=== PATIENT | female | born 1960 | race Caucasian/White ===

== ENCOUNTER 2017-12-25 11:31 | Inpatient (IN) ==
[2017-12-25] MEDS ORDERED: Sod Chloride 0.9% Inj 1,000 ML IV.SIG ONE (12:44)
[2017-12-25] MEDS ORDERED: Morphine Inj 4 MG/ML Vial IV.PUSH ONE (12:44)
[2017-12-25 13:47] LABS: Baso % (Auto) 0.3 % (0.0-2.0); Eos # (Auto) 0.1 th/mm3 (0.0-0.4); Eos % (Auto) 0.6 % (0.0-4.0); Hematocrit 39.2 % (35.0-46.0); Hemoglobin 13.3 gm/dL (11.6-15.3); Lymph % (Auto) 11.7 % (9.0-44.0); Mean Corpuscular HGB Conc 33.9 % (32.0-36.0); Mean Corpuscular Volume 91.5 fL (80.0-100.0); Mean Platelet Volume 10.6 fL (7.0-11.0); Mono # (Auto) 1.4 th/mm3 (0.0-0.9); Neut # (Auto) 6.3 th/mm3 (1.8-7.7); Neut % (Auto) 71.4 % (16.0-70.0); Platelet Count 234 th/mm3 (150-450); Red Blood Count 4.29 mil/mm3 (4.00-5.30); Red Cell Distribution Width 13.2 % (11.6-17.2); White Blood Count 8.8 th/mm3 (4.0-11.0)
[2017-12-25 13:57] LABS: Activated Partial Thrombo Time 28.6 sec (24.3-30.1); INR 1.2 Ratio; Prothrombin Time 11.8 sec (9.8-11.6)
[2017-12-25 14:30] LABS: Alanine Aminotransferase 25 U/L (10-53); Albumin 2.4 g/dL (3.4-5.0); Alkaline Phosphatase 52 U/L (45-117); Anion Gap 8 meq/L (5-15); Aspartate Aminotransferase 21 U/L (15-37); Blood Urea Nitrogen 10 mg/dL (7-18); Calcium 8.2 mg/dL (8.5-10.1); Carbon Dioxide 27.6 meq/L (21.0-32.0); Chloride 99 meq/L (98-107); Glomerular Filtration Rate 77 mL/min (>89); Glucose,Random 118 mg/dL (74-106); Lipase 52 U/L (73-393); Potassium 3.4 meq/L (3.5-5.1); Sodium 135 meq/L (136-145); Total Protein 6.3 g/dL (6.4-8.2)
--- NOTE | 2017-12-25 17:35 | CT ---
EXAM DATE: 12/25/2017 5:27 PM EDT AGE/SEX: 57 years / Female INDICATIONS: Nausea and diarrhea today. CLINICAL DATA: This is the patient's initial encounter. Patient reports that signs and symptoms have been present for 1 day and indicates a pain score of 0/10. MEDICAL/SURGICAL HISTORY: . chron' s None. ORAL CONTRAST: No oral contrast ingested. RADIATION DOSE: 4.86 CTDI (mGy) COMPARISON: No prior exams available for comparison. TECHNIQUE: Multiple contiguous axial images were obtained through the abdomen and pelvis following b olus infusion of 89 ml Omnipaque 350 (iohexol) nonionic water-soluble contrast as a single exam dos e. No oral contrast ingested. Using automated exposure control and adjustment of the mA and/or kV ac cording to patient size, radiation dose was kept as low as reasonably achievable to obtain optimal di agnostic quality images. DICOM format image data is available electronically for review and comparis on. FINDINGS: Abdomen CT: The liver, spleen, pancreas, kidneys, adrenals are unremarkable. There is no evidence for any appreci able pathological adenopathy, free fluid, or bowel obstruction. Gallbladder is slightly distended me asures 8 cm in size and common bile duct measures 6 [address] CT: There is no evidence for mass, abscess formation, or any significant adenopathy within the pelvis. T here is slight fluid within the cul-de-sac. There is distention of the patient's colon fairly diffuse ly with extensive stool in the cecum. The transverse colon measures almost 5 cm in size and there is thickening of the descending colon colonic wall with fluid within the descending colon as well. Possi bility of colitis should be entertained the appearance is nonspecific. There is no evidence for small bowel obstruction. CONCLUSION: Distended colon with thickening of the colonic wall involving descending colon and possib ility of colitis should be entertained. The patient has a history of Crohn's disease and possibility of inflammatory bowel disease should also be entertained. The small bowel appears grossly intact for technique. Electronically signed by: Lisa Lacy MD 12/25/2017 5:33 PM EDT
[2017-12-25] MEDS ORDERED: Ciprofloxacin 400 MG/200 ML 400 MG/200 ML PIGGYBACK IV.SIG ONE (18:17)
[2017-12-25] MEDS ORDERED: Acetaminophen 325 MG Tablet PO PRN (18:23)
[2017-12-25] MEDS ORDERED: Naloxone Inj 0.4 MG/ML Vial IV.PUSH PRN (18:27)
[2017-12-25] MEDS ORDERED: oxyCODONE/Acetaminophen 10/325 Tablet PO PRN (18:27)
[2017-12-25] MEDS ORDERED: Morphine Inj 4 MG/ML Vial IV.PUSH PRN (18:27)
[2017-12-25] MEDS ORDERED: Enoxaparin Inj 30 MG/0.3 ML Syringe SQ SCH (18:30)
[2017-12-25] MEDS: Sod Chloride 0.9% Inj 1,000 ML IV.SIG SCH (18:34)
--- NOTE | 2017-12-25 18:38 | ED ---
HPI General Chief complaint: Nausea/Vomiting/Diarrhea Stated complaint: Diarrhea,fever,pain all over Time Seen by Provider: 12/25/17 12:36 Source: patient Mode of arrival: ambulatory Limitations: no limitations History of Present Illness HPI Narrative: 57-year-old female from [place] who presents to the ED for evaluation of abdominal pain, nausea vomiting diarrhea. Per patient she is had symptoms since Wednesday. Per patient is a chronic history of Crohn's disease. Patient herself does not speak Anguillan but her speaks Anguillan and prefers to be the one who translates for the patient. Translating services were offered to the and but they declined stating that the wants to translate for her. Per report I was given from the apparently patient has been having the pain from Wednesday. Continues. Comes and goes with cramping. Is having liquidy diarrhea and some episodes of blood. No chest pain or shortness of breath. Has vomited about twice. Has been taking over-the -counter Imodium with minimal relief. Symptoms have not improved which is per prompted evaluation. No other medical issues at this time. Per patient the pain is 7 out of 10. Denies any back pain. No urinary symptoms. No fevers chills or sweats. Per no new food has been tried but patient is from [place] and is currently visiting in the [facility]. Related Data Home Medications Medication Instructions Recorded Confirmed No Known Home Medications 12/25/17 12/25/17 Allergies Allergy/AdvReac Type Severity Reaction Status Date / Time No Known Allergies Allergy Verified 12/25/17 12:01 Review of Systems ROS: all other systems reviewed are negative ON LICENSE OF [facility] Medical History Medical History Crohns disease (Acute) Surgical History Surgical History No history of previous surgery (Acute) Social History Social History Second Hand Smoke Exposure: No Smoking Status: Never smoker How Often Do You Have a Drink Containing Alcohol: Monthly or less Recent Travel in [facility] within the Last 8 Weeks: Yes Recent Out of Country Travel within the Last 8 Weeks: Yes Immunization History Tetanus Immunization: Unsure Hx Influenza Vaccine This Season: Unable to Assess Exam Narrative Exam Narrative: GENERAL: Well appearing SKIN: Focused skin assessment warm/dry. HEAD: Atraumatic. Normocephalic. EYES: Pupils equal and round. No scleral icterus. No injection or drainage. ENT: No nasal bleeding or discharge. Mucous membranes pink and moist. NECK: Trachea midline. No JVD. CARDIOVASCULAR: Regular rate and rhythm. No murmur appreciated. RESPIRATORY: No accessory muscle use. Clear to auscultation. Breath sounds equal bilaterally. GASTROINTESTINAL: Abdomen soft, very tender to touch especially in the lower abdomen, nondistended. Hepatic and splenic margins not palpable. MUSCULOSKELETAL: No obvious deformities. No clubbing. No cyanosis. No edema. Full range of motion of the upper and lower extremities bilaterally. 2+ pulses bilaterally. NEUROLOGICAL: Awake and alert. No obvious cranial nerve deficits. Motor grossly within normal limits. Normal speech. PSYCHIATRIC: Appropriate mood and affect; insight and judgment normal. Course Initial Documented Vital Signs Temperature 99.1 F 12/25/17 11:49 Pulse Rate 98 H 12/25/17 11:49 Respiratory Rate 16 12/25/17 11:49 Blood Pressure 110/55 L 12/25/17 11:49 Pulse Oximetry 97 12/25/17 11:49 Last Documented Vital Signs Temperature 99.1 F 12/25/17 11:49 Pulse Rate 100 H 12/25/17 16:01 Respiratory Rate 19 12/25/17 16:01 Blood Pressure 110/60 12/25/17 16:01 Pulse Oximetry 95 12/25/17 16:01 Medical Decision Making MDM Narrative Medical decision making narrative: 57-year-old female that presents to the ED for evaluation of abdominal pain. Patient was properly examined and was found to have signs and symptoms consistent appears to be likely Crohn's flare versus colitis versus diverticulitis. Labs and imaging order. and patient agreed to proceed. Labs and imaging were positive for what appears to be colitis of infectious versus inflammatory disease. Because of patient's recent travel I am concerned for colitis of infectious etiology as well as possible flare secondary to her Crohn's. Patient still in some discomfort although those seem to have improved. Case was discussed with GI specialist Dr Regalado who recommends inflammatory markers and admission the patient still having some discomfort. This was discussed with the patient and the who agree with admission. Patient was started on Flagyl and Cipro. Case discussed with my attending Dr. Santos who agrees with this. Case discussed with Dr. Coles who agrees to admission to his service. Medical Screen Exam Complete: Yes Emergency Medical Condition: Yes Differential Diagnosis Differential Diagnosis: Crohn's disease versus Crohn's flare versus colitis versus diverticulitis versus sepsis versus the hydration Medical Records Medical records reviewed: Yes I reviewed the patient's medical records. Lab Data Lab results reviewed: Yes I reviewed the patient's lab results. Result diagrams: 12/25/17 12:30 12/25/17 12:30 Lab Results 12/25/17 12/25/17 12/25/17 Range/Units 12:30 12:30 12:30 WBC 8.8 (4.0-11.0) th/mm3 RBC 4.29 (4.00-5.30) mil/mm3 Hgb 13.3 (11.6-15.3) gm/dL Hct 39.2 (35.0-46.0) % MCV 91.5 (80.0-100.0) fL MCH 31.0 (27.0-34.0) pg MCHC 33.9 (32.0-36.0) % RDW 13.2 (11.6-17.2) % Plt Count 234 (150-450) th/mm3 MPV 10.6 (7.0-11.0) fL Neut % (Auto) 71.4 H (16.0-70.0) % Lymph % (Auto) 11.7 (9.0-44.0) % Loup % (Auto) 16.0 H (0.0-8.0) % Eos % (Auto) 0.6 (0.0-4.0) % Baso % (Auto) 0.3 (0.0-2.0) % Neut # (Auto) 6.3 (1.8-7.7) th/mm3 Lymph # (Auto) 1.0 (1.0-4.8) th/mm3 Loup # (Auto) 1.4 H (0.0-0.9) th/mm3 Eos # (Auto) 0.1 (0.0-0.4) th/mm3 Baso # (Auto) 0.0 (0.0-0.2) th/mm3 WBC Differential . Differential Comment Auto diff final PT (9.8-11.6) sec INR Ratio APTT (24.3-30.1) sec Sodium 135 L Cancelled (136-145) meq/L Potassium 3.4 L Cancelled (3.5-5.1) meq/L Chloride 99 Cancelled (98-107) meq/L Carbon Dioxide 27.6 Cancelled (21.0-32.0) meq/L Anion Gap 8 Cancelled (5-15) meq/L BUN 10 Cancelled (7-18) mg/dL Creatinine 0.77 Cancelled (0.50-1.00) mg/dL Estimated GFR 77 L Cancelled (>89) mL/min Random Glucose 118 H Cancelled (74-106) mg/dL Lactic Acid (0.4-2.0) mmol/L Calcium 8.2 L Cancelled (8.5-10.1) mg/dL Prot Corrected Calcium Cancelled Total Bilirubin 0.4 Cancelled (0.2-1.0) mg/dL AST 21 Cancelled (15-37) U/L ALT 25 Cancelled (10-53) U/L Alkaline Phosphatase 52 Cancelled (45-117) U/L Total Protein 6.3 L Cancelled (6.4-8.2) g/dL Albumin 2.4 L Cancelled (3.4-5.0) g/dL Lipase 52 L Cancelled (73-393) U/L 12/25/17 12/25/17 Range/Units 12:56 13:00 WBC (4.0-11.0) th/mm3 RBC (4.00-5.30) mil/mm3 Hgb (11.6-15.3) gm/dL Hct (35.0-46.0) % MCV (80.0-100.0) fL MCH (27.0-34.0) pg MCHC (32.0-36.0) % RDW (11.6-17.2) % Plt Count (150-450) th/mm3 MPV (7.0-11.0) fL Neut % (Auto) (16.0-70.0) % Lymph % (Auto) (9.0-44.0) % Loup % (Auto) (0.0-8.0) % Eos % (Auto) (0.0-4.0) % Baso % (Auto) (0.0-2.0) % Neut # (Auto) (1.8-7.7) th/mm3 Lymph # (Auto) (1.0-4.8) th/mm3 Loup # (Auto) (0.0-0.9) th/mm3 Eos # (Auto) (0.0-0.4) th/mm3 Baso # (Auto) (0.0-0.2) th/mm3 WBC Differential Differential Comment PT 11.8 H (9.8-11.6) sec INR 1.2 Ratio APTT 28.6 (24.3-30.1) sec Sodium (136-145) meq/L Potassium (3.5-5.1) meq/L Chloride (98-107) meq/L Carbon Dioxide (21.0-32.0) meq/L Anion Gap (5-15) meq/L BUN (7-18) mg/dL Creatinine (0.50-1.00) mg/dL Estimated GFR (>89) mL/min Random Glucose (74-106) mg/dL Lactic Acid 1.3 (0.4-2.0) mmol/L Calcium (8.5-10.1) mg/dL Prot Corrected Calcium Total Bilirubin (0.2-1.0) mg/dL AST (15-37) U/L ALT (10-53) U/L Alkaline Phosphatase (45-117) U/L Total Protein (6.4-8.2) g/dL Albumin (3.4-5.0) g/dL Lipase (73-393) U/L Imaging Data Attestation: I personally reviewed and interpreted this imaging study as follows : Radiologist's impression: Abdomen/Pelvis CT 12/25/17 15:31 CONCLUSION: Distended colon with thickening of the colonic wall involving descending colon and possibility of colitis should be entertained. The patient has a history of Crohn's disease and possibility of inflammatory bowel disease should also be entertained. The small bowel appears grossly intact for technique. Discharge Plan Discharge Disposition Patient Disposition: 30 Still Patient Discharge Details Diagnosis: Colitis, Acute Crohn's disease Physicians Team ED Provider: Jun Santos ED Midlevel Provider: Vickey Sadler Primary Care Provider: Primary Care MukuliLuli Rxs /Orders / Referrals /Forms Prescriptions: No Action No Known Home Medications RF: 0 Discharge Interventions Interventions: Vital Signs Last Done: 12/25/17 16:01 Status ED Status: With Doctor
--- NOTE | 2017-12-25 19:04 | P.HPIM ---
History of Present Illness Primary Care Physician: No Primary Care Physician History of Present Illness: This is a 57-year-old female with a PMH of Crohn's Disease who presented to ER with complaints of abdominal pain, nausea, vomiting and diarrhea x4 days. 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 Pain is intermittent, cramping, 8/10, non-radiating, associated w/ nausea/vomiting and diarrhea. Denies fever or chills. On arrival, BP 110/55, HR 98, O2 sat 97% on RA, Temp 99.1. CBC unremarkable. INR 1.2. Chemistry essentially unremarkable except for GFR 77. K+ 3.4. Lactic Acid 1.3. CT Abdomen/Pelvis with distended colon and thickening of colonic wall involving descending colon and likely due to colitis. S/p Cipro/Flagyl - Diagnosis (1) Colitis (2) Crohn's disease (3) Intractable nausea and vomiting Inpatient Certification: I certify that the inpatient services were ordered in accordance with Medicare regulations governing the order. This includes certification that hospital inpatient services are reasonable and necessary and in the case of services not specified as inpatient-only under 42 CFR 419.22(n), that they are appropriately provided as inpatient services in accordance to with the 2-midnight benchmark under 43 CFR 412.3(e) Estimated Total Length of Stay (Days): 3 Plans for Post Hospital Care: Home Review of Systems PAST FAMILY HISTORY: Reviewed. No h/o DM or CAD All other systems reviewed negative except as stated in HPI [facility] - History History Provided By: Patient - Medical History Medical History: Medical History (Last Reviewed 12/25/17 @ 18:34 by JHOAN Vargas) Crohns disease - Surgical History Surgical History: Surgical History (Last Reviewed 12/25/17 @ 18:34 by JHOAN Vargas) No history of previous surgery - Tobacco History Second Hand Smoke Exposure: No Tobacco Use In Past 30 Days: No Smoking Status: Never smoker - Alcohol History How Often Do You Have a Drink Containing Alcohol: Monthly or less - Travel History Recent Travel in the [place] Within the Last 8 Weeks: Yes Recent Travel Out of the Country Within the Last 8 Weeks: Yes - Immunization History Tetanus Immunization: Unsure Hx Influenza Vaccine This Season: Unable to Assess Medications and Allergies Active Medications: Active Medications Acetaminophen (Tylenol) 650 mg PO Q4H PRN PRN Reason: Temp > 100.4 Hydrocodone Bitart/Acetaminophen ([place] 5/325) 1 tab PO Q4H PRN PRN Reason: PAIN SCALE 3 TO 5 Enoxaparin Sodium (Lovenox Inj) 30 mg SQ Q24H LISSETTE Metronidazole/Sodium Chloride (Flagyl 500 Mg Inj) 100 mls @ 100 mls/hr IV.SIG ONCE ONE Stop: 12/25/17 19:15 Last Admin: 12/25/17 18:33 Dose: 100 mls/hr Sodium Chloride (Ns Inj) 1,000 mls @ 0 mls/hr IV.SIG BOLUS LISSETTE Last Admin: 12/25/17 18:34 Dose: 999 mls/hr Ciprofloxacin/Dextrose (Cipro 400 Mg/200 Ml Inj) 400 mg in 200 mls @ 200 mls/ hr IV.SIG ONCE ONE Stop: 12/25/17 19:16 Ciprofloxacin/Dextrose (Cipro 400 Mg/200 Ml Inj) 400 mg in 200 mls @ 200 mls/ hr IV.SIG Q12HR [place]TE Metronidazole/Sodium Chloride (Flagyl 500 Mg Inj) 100 mls @ 100 mls/hr IV.SIG Q8H [place]SETTE Sodium Chloride (Ns Inj) 1,000 mls @ 100 mls/hr IV.CONT .Q10H LISSETTE Morphine Sulfate (Morphine Inj) 4 mg IV.PUSH Q3H PRN PRN Reason: BREAKTHROUGH PAIN Naloxone HCl (Narcan Inj) 0.4 mg IV.PUSH UNSCH PRN PRN Reason: SEE LABEL COMMENTS Ondansetron HCl (Zofran Inj) 4 mg IV.PUSH Q6H PRN PRN Reason: NAUSEA OR VOMITING Oxycodone/Acetaminophen (Percocet 10/325 Mg) 1 tab PO Q6H PRN PRN Reason: PAIN SCALE 6 TO 10 Allergies Allergy/AdvReac Type Severity Reaction Status Date / Time No Known Allergies Allergy Verified 12/25/17 12:01 Home Medications Medication Instructions Recorded Confirmed Type No Known Home Medications 12/25/17 12/25/17 History Exam Vital signs: Vital Signs 12/25/17 11:49 12/25/17 12:01 12/25/17 12:32 Temperature 99.1 F Pulse Rate 98 H 96 H Respiratory Rate 16 Blood Pressure 110/55 L 114/70 Pulse Oximetry 97 94 L 12/25/17 16:01 09/01/18 18:38 Temperature Pulse Rate 100 H 107 H Respiratory Rate 19 19 Blood Pressure 110/60 116/62 Pulse Oximetry 95 96 Intake & Output 12/25/17 12/25/17 12/26/17 06:59 18:59 06:59 Intake Total 240 / 240 Balance 240 / 240 Weight 58 kg Intake: Oral 240 / 240 Other: # Voids 2 Narrative: PE: GENERAL: Middle-aged Turkish female in no acute distress. at bedside. SKIN: Focused skin assessment warm and dry. HEENT: PERRLA, EOMI. No scleral icterus or conjunctival pallor. No lid lag or facial droop. CARDIOVASCULAR: Regular rate and rhythm. No obvious murmurs to auscultation. No chest tenderness to palpation. RESPIRATORY: No obvious rhonchi or wheezing. Clear to auscultation. Breath sounds equal bilaterally. GASTROINTESTINAL: Abdomen soft, generalized tenderness to palpation, mildly distended. BS normal. MUSCULOSKELETAL: Extremities without clubbing, cyanosis, or edema. No obvious deformities. NEUROLOGICAL: Awake, alert and oriented x4. No focal neurologic deficits. Moving both upper and lower extremities spontaneously. PSYCHIATRIC: Appropriate mood and affect. Insight and judgment normal. Results - Labs CBC & Chem 7: 12/25/17 12:30 12/25/17 12:30 Labs: Short CBC 12/25/17 Range/Units 12:30 WBC 8.8 (4.0-11.0) th/mm3 Hgb 13.3 (11.6-15.3) gm/dL Hct 39.2 (35.0-46.0) % Plt Count 234 (150-450) th/mm3 BMP 12/25/17 12/25/17 12:30 12:30 Sodium 135 L Cancelled Potassium 3.4 L Cancelled Chloride 99 Cancelled Carbon Dioxide 27.6 Cancelled BUN 10 Cancelled Creatinine 0.77 Cancelled Calcium 8.2 L Cancelled Liver Function 12/25/17 12/25/17 Range/Units 12:30 12:30 Total Bilirubin 0.4 Cancelled (0.2-1.0) mg/dL AST 21 Cancelled (15-37) U/L ALT 25 Cancelled (10-53) U/L Alkaline Phosphatase 52 Cancelled (45-117) U/L Albumin 2.4 L Cancelled (3.4-5.0) g/dL - Imaging Impressions Abdomen/Pelvis CT 12/25/17 15:31 CONCLUSION: Distended colon with thickening of the colonic wall involving descending colon and possibility of colitis should be entertained. The patient has a history of Crohn's disease and possibility of inflammatory bowel disease should also be entertained. The small bowel appears grossly intact for technique. Caprini VTE Risk Assessment Caprini VTE Risk Assessment: No/Low Risk (score <= 1) Caprini Risk Assessment Model: Point Value = 1 Point Value = 2 Point Value = 3 Point Value = 5 Age 41-60 Minor surgery BMI > 25 kg/m2 Swollen legs Varicose veins or History of unexplained or recurrent spontaneous Oral contraceptives or hormone replacement Sepsis (< 1 month) Serious lung disease, including pneumonia (< 1 month) Abnormal pulmonary function Acute myocardial infarction Congestive heart failure (< 1 month) History of inflammatory bowel disease Medical patient at bed rest Age 61-74 Arthroscopic surgery Major open surgery (> 45 min) Laparoscopic surgery (> 45 min) Malignancy Confined to bed (> 72 hours) Immobilizing plaster cast Central venous access Age >= 75 History of VTE Family history of VTE Factor V Leiden Prothrombin [id number] Lupus anticoagulant Anticardiolipin antibodies Elevated serum homocysteine Heparin-induced thrombocytopenia Other congenital or acquired thrombophilia Stroke (< 1 month) Elective arthroplasty Hip, pelvis, or leg fracture Acute spinal cord injury (< 1 month) Prophylaxis Regimen: Total Risk Factor Score Risk Level Prophylaxis Regimen 0-1 Low Early ambulation 2 Moderate Order ONE of the following: *Sequential Compression Device (SCD) *Heparin 5000 units SQ BID 3-4 Higher Order ONE of the following medications: *Heparin 5000 units SQ TID *Enoxaparin/Lovenox 40 mg SQ daily (WT < 150 kg, CrCl > 30 mL/min) *Enoxaparin/Lovenox 30 mg SQ daily (WT < 150 kg, CrCl > 10-29 mL/min) *Enoxaparin/Lovenox 30 mg SQ BID (WT < 150 kg, CrCl > 30 mL/min) AND/OR *Sequential Compression Device (SCD) 5 or more Highest Order ONE of the following medications: *Heparin 5000 units SQ TID (Preferred with Epidurals) *Enoxaparin/Lovenox 40 mg SQ daily (WT < 150 kg, CrCl > 30 mL/min) *Enoxaparin/Lovenox 30 mg SQ daily (WT < 150 kg, CrCl > 10-29 mL/min) *Enoxaparin/Lovenox 30 mg SQ BID (WT < 150 kg, CrCl > 30 mL/min) AND *Sequential Compression Device (SCD) Assessment and Plan - Assessment (1) Colitis Code(s): K52.9 - Noninfective gastroenteritis and colitis, unspecified Status : Acute (2) Crohn's disease Code(s): K50.90 - Crohn's disease, unspecified, without complications Status: Acute (3) Intractable nausea and vomiting Code(s): R11.2 - Nausea with vomiting, unspecified Status: Acute - Plan A/P: 1. Colitis: c/o abdominal pain, nausea/vomiting/diarrhea x4 days. CT Abd/ Pelvis w/ distended colon and thickening of colonic wall of descending colon, images reviewed. S/p Cipro/Flagyl, will continue w/ IV Abx, IVF for hydration, diet as tolerated 2. Crohn's Disease: h/o Crohn's Disease, not currently on medication per , GI Consult for further eval/recommendations. 3. Intractable Nausea/Vomiting: secondary to above, analgesics/antiemetics as needed, diet as tolerated, IVF 4. DVT Prophylaxis: Lovenox 5. Social work for d/c planning as needed 6. Case discussed w/ ER physician at length, labs/records/imaging reviewed by me.
[2017-12-25] MEDS: Sod Chloride 0.9% Inj 1,000 ML IV.CONT SCH (23:00)
[2017-12-26] MEDS: Sod Chloride 0.9% Inj 1,000 ML IV.CONT SCH ×4 (04:55→22:15)
[2017-12-26 05:55] LABS: Baso % (Auto) 0.4 % (0.0-2.0); Eos # (Auto) 0.1 th/mm3 (0.0-0.4); Eos % (Auto) 1.1 % (0.0-4.0); Hematocrit 32.1 % (35.0-46.0); Lymph # (Auto) 1.1 th/mm3 (1.0-4.8); Lymph % (Auto) 15.7 % (9.0-44.0); Mean Corpuscular HGB Conc 34.2 % (32.0-36.0); Mean Corpuscular Hemoglobin 31.1 pg (27.0-34.0); Mean Platelet Volume 10.3 fL (7.0-11.0); Mono # (Auto) 1.3 th/mm3 (0.0-0.9); Neut # (Auto) 4.3 th/mm3 (1.8-7.7); Neut % (Auto) 63.8 % (16.0-70.0); Platelet Count 204 th/mm3 (150-450); Red Blood Count 3.52 mil/mm3 (4.00-5.30); White Blood Count 6.7 th/mm3 (4.0-11.0)
[2017-12-26 06:23] LABS: Alanine Aminotransferase 20 U/L (10-53); Albumin 1.7 g/dL (3.4-5.0); Alkaline Phosphatase 37 U/L (45-117); Anion Gap 9 meq/L (5-15); Aspartate Aminotransferase 19 U/L (15-37); Blood Urea Nitrogen 10 mg/dL (7-18); Calcium 7.5 mg/dL (8.5-10.1); Carbon Dioxide 24.8 meq/L (21.0-32.0); Chloride 106 meq/L (98-107); Glomerular Filtration Rate Greater Than 89 mL/min (>89); Glucose,Random 92 mg/dL (74-106); Potassium 3.4 meq/L (3.5-5.1); Sodium 140 meq/L (136-145); Total Protein 4.7 g/dL (6.4-8.2)
[2017-12-26] MEDS ORDERED: Potassium Bicarbonate 25 MEQ Effervescent Tablet PO ONE (07:52)
[2017-12-26] MEDS: Ciprofloxacin 400 MG/200 ML 400 MG/200 ML PIGGYBACK IV.SIG SCH ×2 (08:51→20:31)
--- NOTE | 2017-12-26 10:15 | P.PN ---
Subjective Interval history: Patient is seen sitting up in bed. She refuses offer of heel cover splitter service. Is able to understand and communicate effectively in Mongolian. She denies any chest pain or shortness of breath. Reports that she still is having cramping pain in her lower abdomen. Continues to have some diarrhea but no longer has nausea or vomiting. Denies fever/ chills. Physical Exam Vital signs: Vital Signs 12/25/17 11:49 12/25/17 12:01 12/25/17 12:32 Temperature 99.1 F Pulse Rate 98 H 96 H Respiratory Rate 16 Blood Pressure 110/55 L 114/70 Pulse Oximetry 97 94 L 12/25/17 16:01 12/25/17 18:38 12/25/17 19:15 Temperature Pulse Rate 100 H 107 H 108 H Respiratory Rate 19 19 Blood Pressure 110/60 116/62 Pulse Oximetry 95 96 12/25/17 20:00 12/25/17 20:30 12/26/17 00:00 Temperature 98.3 F 97.8 F 98.2 F Pulse Rate 96 H 84 Respiratory Rate 18 17 Blood Pressure 104/59 L 94/54 L Pulse Oximetry 96 98 12/26/17 04:00 Temperature 98.6 F Pulse Rate 94 H Respiratory Rate 14 Blood Pressure 108/55 L Pulse Oximetry 98 Intake & Output 12/25/17 12/26/17 12/26/17 18:59 06:59 18:59 Intake Total 1240 / 1240 1400 / 1400 Balance 1240 / 1240 1400 / 1400 Weight 58 kg 60.9 kg Intake: IV 1000 / 1000 1400 / 1400 Cipro 400 MG/200 ML Inj 400 mg 200 / 200 In 200 ml @ 200 mls/hr IV.SIG ONCE ONE Rx#:[id number] NS Inj 1,000 ML @ Wide Open IV. 1000 / 1000 SIG BOLUS L[facility]TE Rx#:[id number] Flagyl 500 MG Inj 100 ML @ 100 200 / 200 mls/hr IV.SIG Q8H [facility] Rx#: [id number] Oral 240 / 240 Other: # Voids 2 3 Weight On Admission 60.9 kg Narrative: GENERAL: Well-nourished, well-developed adult female in no obvious distress. SKIN: Warm and dry. HEAD: Atraumatic. Normocephalic. CARDIOVASCULAR: Regular rate and rhythm. RESPIRATORY: No accessory muscle use. Clear to auscultation. Breath sounds equal bilaterally. GASTROINTESTINAL: Abdomen soft, diffusely tender across lower abdomen, no guarding, distended. Positive bowel sounds. MUSCULOSKELETAL: Extremities without clubbing, cyanosis, or edema. No obvious deformities. NEUROLOGICAL: Awake and alert. No obvious cranial nerve deficits. Motor grossly within normal limits. Normal speech. PSYCHIATRIC: Appropriate mood and affect; insight and judgment good. Results - Labs CBC & Chem 7: 12/26/17 04:55 12/26/17 04:55 Laboratory Results - last 24 hr 12/25/17 12/25/17 12/25/17 12:30 12:30 12:30 WBC 8.8 RBC 4.29 Hgb 13.3 Hct 39.2 MCV 91.5 MCH 31.0 MCHC 33.9 RDW 13.2 Plt Count 234 MPV 10.6 Neut % (Auto) 71.4 H Lymph % (Auto) 11.7 [place] % (Auto) 16.0 H Eos % (Auto) 0.6 Baso % (Auto) 0.3 Neut # (Auto) 6.3 Lymph # (Auto) 1.0 [place] # (Auto) 1.4 H Eos # (Auto) 0.1 Baso # (Auto) 0.0 WBC Differential . Differential Comment Auto diff final ESR PT INR APTT Sodium 135 L Cancelled Potassium 3.4 L Cancelled Chloride 99 Cancelled Carbon Dioxide 27.6 Cancelled Anion Gap 8 Cancelled BUN 10 Cancelled Creatinine 0.77 Cancelled Estimated GFR 77 L Cancelled Random Glucose 118 H Cancelled Lactic Acid Calcium 8.2 L Cancelled Prot Corrected Calcium Cancelled Total Bilirubin 0.4 Cancelled AST 21 Cancelled ALT 25 Cancelled Alkaline Phosphatase 52 Cancelled C-Reactive Protein Total Protein 6.3 L Cancelled Albumin 2.4 L Cancelled Lipase 52 L Cancelled 12/25/17 12/25/17 12/25/17 12:30 12:30 12:56 WBC RBC Hgb Hct MCV MCH MCHC RDW Plt Count MPV Neut % (Auto) Lymph % (Auto) [place] % (Auto) Eos % (Auto) Baso % (Auto) Neut # (Auto) Lymph # (Auto) [place] # (Auto) Eos # (Auto) Baso # (Auto) WBC Differential Differential Comment ESR 36 H PT 11.8 H INR 1.2 APTT 28.6 Sodium Potassium Chloride Carbon Dioxide Anion Gap BUN Creatinine Estimated GFR Random Glucose Lactic Acid Calcium Prot Corrected Calcium Total Bilirubin AST ALT Alkaline Phosphatase C-Reactive Protein 25.00 H Total Protein Albumin Lipase 12/25/17 12/26/17 12/26/17 13:00 04:55 04:55 WBC 6.7 RBC 3.52 L Hgb 11.0 L D Hct 32.1 L MCV 91.0 MCH 31.1 MCHC 34.2 RDW 13.0 Plt Count 204 MPV 10.3 Neut % (Auto) 63.8 Lymph % (Auto) 15.7 [place] % (Auto) 19.0 H Eos % (Auto) 1.1 Baso % (Auto) 0.4 Neut # (Auto) 4.3 Lymph # (Auto) 1.1 [place] # (Auto) 1.3 H Eos # (Auto) 0.1 Baso # (Auto) 0.0 WBC Differential . Differential Comment Auto diff final ESR PT INR APTT Sodium 140 Potassium 3.4 L Chloride 106 Carbon Dioxide 24.8 Anion Gap 9 BUN 10 Creatinine 0.60 Estimated GFR Greater than 89 Random Glucose 92 Lactic Acid 1.3 Calcium 7.5 L Prot Corrected Calcium Total Bilirubin 0.4 AST 19 ALT 20 Alkaline Phosphatase 37 L C-Reactive Protein Total Protein 4.7 L D Albumin 1.7 L D Lipase - Imaging Impressions Abdomen/Pelvis CT 12/25/17 15:31 CONCLUSION: Distended colon with thickening of the colonic wall involving descending colon and possibility of colitis should be entertained. The patient has a history of Crohn's disease and possibility of inflammatory bowel disease should also be entertained. The small bowel appears grossly intact for technique. Assessment and Plan - Assessment (1) Colitis Code(s): K52.9 - Noninfective gastroenteritis and colitis, unspecified Status : Acute (2) Crohn's disease Code(s): K50.90 - Crohn's disease, unspecified, without complications Status: Acute (3) Intractable nausea and vomiting Code(s): R11.2 - Nausea with vomiting, unspecified Status: Acute - Plan Patient is a 57-year-old female visiting from [place]. Medical history is limited. Does have a history of Crohn's disease. Presented to the emergency room after several days of diarrhea, nausea and vomiting that was not responsive to Imodium. Colitis: acute -CT Abd/Pelvis w/ distended colon and thickening of colonic wall of descending colon. -S/p Cipro/Flagyl as outpt, will continue w/ same IV Abx for now - started 12/25 -Solu-Medrol 40 mg -Blood cultures collected 12/25-pending results; afebrile Crohn's Disease: chronic -not currently on medication per -GI Consult for further eval/recommendations; appreciate assistance Intractable Nausea/Vomiting: Acute, secondary to above -analgesics/antiemetics as needed -diet as tolerated -IVF Hypokalemia: Acute, secondary to diarrhea/vomiting -K3.4 on 12/26; 25 mEq effervescent given. Evaluate for tolerance and change to IV if needed. Anemia -Hemoglobin 13.3 on admission, now 11.0 on 12/26 -Possibly dilution from IVF. Will evaluate FOBT -patient did report bloody stools at admit DVT Prophylaxis: Lovenox started at admit; stop due to anemia and possible GI bleed 12/26. SCDs as alternative. Discussed with: Patient, nurse, Dr. French
[2017-12-26] MEDS ORDERED: MethylPREDNISolone Sod Succinate Inj 40 MG/ML Vial IV.PUSH ONE (11:00)
--- NOTE | 2017-12-26 14:46 | MB ---
cc: Kraig Bethea MD DATE: 12/26/2017 REASON FOR CONSULTATION: Exacerbation of Crohn disease. HISTORY OF PRESENT ILLNESS: This is a 57-year-old female patient who is a [place] citizen visiting [place] as a tourist, who is known to have Crohn disease diagnosed 8 years ago. The Crohn disease was diagnosed in [facility]. The location of the Crohn disease is unknown to the patient. She was treated initially with several medications that she cannot recall for several years until 6 months ago when she had another colonoscopy that was negative and she was advised to discontinue all her medications. During the years before that, she never had any flare-up of her disease. The patient presented this time complaining of frequent bowel movements in the form of diarrhea 4-5 times a day for the last few days associated with nausea, vomiting and abdominal pain. She was seen in the emergency room and had a workup that showed evidence of inflammatory changes with increase in ESR and a CAT scan showing thickness of the colon suggestive of colitis, mainly in the descending colon. The small bowel was spared and appeared to be normal. GI consulted for Crohn management. REVIEW OF SYSTEMS: Unremarkable other than the ones mentioned in the history of present illness. Otherwise, all 14-point system review was negative. FAMILY HISTORY: Unremarkable. PSYCHOSOCIAL HISTORY: The patient lives with her . She is a [place] citizen visiting [place]. Denies alcohol or smoking. No IV drug abuse. PAST MEDICAL HISTORY: Positive for Crohn disease diagnosed 8 years ago with no flare-ups during the period of time and discontinued her medication 6 months ago after a colonoscopy that cleared her. PAST SURGICAL HISTORY: None. MEDICATIONS: None. ALLERGIES: NO KNOWN DRUG ALLERGIES. ASSESSMENT: A 57-year-old female patient who presented with: 1. Acute colitis manifested by thickened colon by CT scan, increased ESR and symptomatic diarrhea, nausea, vomiting and abdominal pain. 2. The patient is known to have Crohn disease that appeared to be inactive for several years and discontinued her medication 6 months ago. 3. Positive history of traveling to several places over the last several months. PLAN: Agree with the current treatment plan. We will do the followin. Aggressive hydration with fluids, IV trial of prednisolone, IV antibiotics in the form of ciprofloxacin and Flagyl. 2. Check inflammatory markers like CRP and fecal calprotectin. 3. Check stool studies for parasites, microbiology and white blood cells to rule out infectious process. 4. Supportive care. 5. Further recommendations to follow. MD ASHOK Mooney/vielka , 11:04 AM , 11:13 AM ERIS
[2017-12-27 07:33] LABS: Anion Gap 10 meq/L (5-15); Blood Urea Nitrogen 5 mg/dL (7-18); Calcium 7.7 mg/dL (8.5-10.1); Carbon Dioxide 23.8 meq/L (21.0-32.0); Chloride 106 meq/L (98-107); Glomerular Filtration Rate Greater Than 89 mL/min (>89); Glucose,Random 100 mg/dL (74-106); Potassium 3.1 meq/L (3.5-5.1); Sodium 140 meq/L (136-145)
[2017-12-27 07:45] LABS: Baso % (Auto) 0.4 % (0.0-2.0); Eos # (Auto) 0.6 th/mm3 (0.0-0.4); Eos % (Auto) 8.9 % (0.0-4.0); Hematocrit 32.5 % (35.0-46.0); Hemoglobin 10.7 gm/dL (11.6-15.3); Lymph # (Auto) 1.1 th/mm3 (1.0-4.8); Lymph % (Auto) 16.7 % (9.0-44.0); Mean Corpuscular Hemoglobin 30.8 pg (27.0-34.0); Mean Corpuscular Volume 93.4 fL (80.0-100.0); Mean Platelet Volume 10.6 fL (7.0-11.0); Mono # (Auto) 0.9 th/mm3 (0.0-0.9); Mono % (Auto) 12.8 % (0.0-8.0); Neut # (Auto) 4.1 th/mm3 (1.8-7.7); Neut % (Auto) 61.2 % (16.0-70.0); Platelet Count 226 th/mm3 (150-450); Red Blood Count 3.48 mil/mm3 (4.00-5.30); White Blood Count 6.8 th/mm3 (4.0-11.0)
[2017-12-27] MEDS: Potassium Chloride 25 MEQ Effervescent Tablet PO SCH ×3 (08:54→17:46)
[2017-12-27] MEDS: Ciprofloxacin 400 MG/200 ML 400 MG/200 ML PIGGYBACK IV.SIG SCH ×2 (08:55→20:10)
[2017-12-27] MEDS: Sod Chloride 0.9% Inj 1,000 ML IV.CONT SCH ×2 (12:57→21:47)
--- NOTE | 2017-12-27 13:47 | P.PNGI ---
Subjective Interval history: Patient is resting in the bed seems to be feeling gradually better but still notes some diarrhea with stools 1-3 times. Right upper quadrant pain is better no obvious nausea vomiting Heme positive stool on 12/26, hemoglobin 10.7 PT/INR 1.2 <Alyx Thompson - Last Filed: 12/27/17 13:48> Physical Exam Vital signs: Vital Signs 12/26/17 16:00 12/26/17 20:00 12/27/17 00:00 Temperature 97.9 F 99 F 99.1 F Pulse Rate 92 H 99 H 94 H Respiratory Rate 20 14 16 Blood Pressure 124/65 100/57 L 114/66 Pulse Oximetry 95 98 95 12/27/17 04:00 12/27/17 08:00 12/27/17 12:00 Temperature 98.1 F 98.2 F 98.2 F Pulse Rate 91 H 86 78 Respiratory Rate 16 18 17 Blood Pressure 109/61 101/64 105/65 Pulse Oximetry 93 L 95 96 Intake & Output 12/26/17 12/27/17 12/27/17 18:59 06:59 18:59 Intake Total 1860 / 1860 1880 / 1880 1300 / 1300 Output Total 950 / 950 Balance 1860 / 1860 930 / 930 1300 / 1300 Weight 62.5 kg Intake: IV 1300 / 1300 1400 / 1400 1300 / 1300 NS Inj 1,000 ML @ 100 mls/hr IV 1000 / 1000 1000 / 1000 1000 / 1000 .CONT .Q10H LISSETTE Rx#:[id number] Cipro 400 MG/200 ML Inj 400 mg 200 / 200 200 / 200 200 / 200 In 200 ml @ 200 mls/hr IV.SIG Q12HR LISSETTE Rx#:[id number] Flagyl 500 MG Inj 100 ML @ 100 100 / 100 200 / 200 100 / 100 mls/hr IV.SIG Q8H LISSETTE Rx#: [id number] Oral 560 / 560 480 / 480 Output: Urine 950 / 950 Other: # Voids 500 Date of Last Bowel Movement 12/26/17 # Bowel Movements 1 - Constitutional mild distress, cachectic - Routine HEENT Exam ENT: Present: mucous membranes dry - Routine Respiratory Exam Present: accessory muscle use (No obvious shortness of breath) - Routine Cardiovascular Exam Present: S1, S2 - Routine Abdominal Exam Present: soft (Round, right upper quadrant pain) - Routine Skin Exam Present: intact (Pale) <Alyx Thompson - Last Filed: 12/27/17 13:48> Vital signs: Vital Signs 12/27/17 00:00 12/27/17 04:00 12/27/17 08:00 Temperature 99.1 F 98.1 F 98.2 F Pulse Rate 94 H 91 H 86 Respiratory Rate 16 16 18 Blood Pressure 114/66 109/61 101/64 Pulse Oximetry 95 93 L 95 12/27/17 12:00 12/27/17 16:00 12/27/17 20:00 Temperature 98.2 F 98.2 F 98.7 F Pulse Rate 78 82 94 H Respiratory Rate 17 17 17 Blood Pressure 105/65 107/65 112/68 Pulse Oximetry 96 97 94 L Intake & Output 12/27/17 12/27/17 12/28/17 06:59 18:59 06:59 Intake Total 1880 / 1880 2120 / 2120 Output Total 950 / 950 Balance 930 / 930 2120 / 2120 Weight 62.5 kg Intake: IV 1400 / 1400 1400 / 1400 NS Inj 1,000 ML @ 100 mls/hr IV 1000 / 1000 1000 / 1000 .CONT .Q10H LISSETTE Rx#:[id number] Cipro 400 MG/200 ML Inj 400 mg 200 / 200 200 / 200 In 200 ml @ 200 mls/hr IV.SIG Q12HR LISSETTE Rx#:[id number] Flagyl 500 MG Inj 100 ML @ 100 200 / 200 200 / 200 mls/hr IV.SIG Q8H LISSETTE Rx#: [id number] Oral 480 / 480 720 / 720 Output: Urine 950 / 950 Other: # Voids 3 Date of Last Bowel Movement 12/26/17 12/27/17 12/27/17 # Bowel Movements 1 0 4 <Kraig Bethea - Last Filed: 12/27/17 23:12> Results - Labs CBC & Chem 7: 12/27/17 06:20 12/27/17 06:20 Laboratory Results - last 24 hr 12/27/17 12/27/17 06:20 06:20 WBC 6.8 RBC 3.48 L Hgb 10.7 L Hct 32.5 L MCV 93.4 MCH 30.8 MCHC 33.0 RDW 13.0 Plt Count 226 MPV 10.6 Neut % (Auto) 61.2 Lymph % (Auto) 16.7 [place] % (Auto) 12.8 H Eos % (Auto) 8.9 H Baso % (Auto) 0.4 Neut # (Auto) 4.1 Lymph # (Auto) 1.1 [place] # (Auto) 0.9 Eos # (Auto) 0.6 H Baso # (Auto) 0.0 WBC Differential . Differential Comment Auto diff final Sodium 140 Potassium 3.1 L Chloride 106 Carbon Dioxide 23.8 Anion Gap 10 BUN 5 L Creatinine 0.51 Estimated GFR Greater than 89 Random Glucose 100 Calcium 7.7 L Magnesium 2.0 Microbiology 12/25/17 12:50 Blood - Peripheral Aerobic Blood Culture - Preliminary No growth in 2 days 12/25/17 12:50 Blood - Peripheral Anaerobic Blood Culture - Preliminary No growth in 2 days 12/25/17 13:00 Blood - Peripheral Aerobic Blood Culture - Preliminary No growth in 2 days 12/25/17 13:00 Blood - Peripheral Anaerobic Blood Culture - Preliminary No growth in 2 days 12/26/17 20:56 Stool Stool for WBCs - Final Many WBC's 12/26/17 20:56 Stool Stool Occult Blood (DAVID) - Final Hemoccult positive <lAyx Thompson M - Last Filed: 12/27/17 13:48> - Labs CBC & Chem 7: 12/27/17 06:20 12/27/17 06:20 Laboratory Results - last 24 hr 12/27/17 12/27/17 06:20 06:20 WBC 6.8 RBC 3.48 L Hgb 10.7 L Hct 32.5 L MCV 93.4 MCH 30.8 MCHC 33.0 RDW 13.0 Plt Count 226 MPV 10.6 Neut % (Auto) 61.2 Lymph % (Auto) 16.7 [place] % (Auto) 12.8 H Eos % (Auto) 8.9 H Baso % (Auto) 0.4 Neut # (Auto) 4.1 Lymph # (Auto) 1.1 [place] # (Auto) 0.9 Eos # (Auto) 0.6 H Baso # (Auto) 0.0 WBC Differential . Differential Comment Auto diff final Sodium 140 Potassium 3.1 L Chloride 106 Carbon Dioxide 23.8 Anion Gap 10 BUN 5 L Creatinine 0.51 Estimated GFR Greater than 89 Random Glucose 100 Calcium 7.7 L Magnesium 2.0 Microbiology 12/25/17 12:50 Blood - Peripheral Aerobic Blood Culture - Preliminary No growth in 2 days 12/25/17 12:50 Blood - Peripheral Anaerobic Blood Culture - Preliminary No growth in 2 days 12/25/17 13:00 Blood - Peripheral Aerobic Blood Culture - Preliminary No growth in 2 days 12/25/17 13:00 Blood - Peripheral Anaerobic Blood Culture - Preliminary No growth in 2 days 12/26/17 20:56 Stool Stool for WBCs - Final Many WBC's 12/26/17 20:56 Stool Stool Occult Blood (DAVID) - Final Hemoccult positive <Kraig Bethea - Last Filed: 12/27/17 23:12> Assessment and Plan (1) Right upper quadrant abdominal pain Status: Acute Code(s): R10.11 - Right upper quadrant pain (2) Right upper quadrant abdominal pain of unknown etiology Status: Acute Code(s): R10.11 - Right upper quadrant pain (3) Colitis Status: Acute Code(s): K52.9 - Noninfective gastroenteritis and colitis, unspecified (4) Crohn's disease Status: Acute Code(s): K50.90 - Crohn's disease, unspecified, without complications (5) Intractable nausea and vomiting Status: Acute Code(s): R11.2 - Nausea with vomiting, unspecified - Plan 12/27/2017 57-year-old female predominantly Turkmen speaking came in with abdominal pain nausea vomiting and diarrhea. Patient has a history of Crohn's disease and could be experiencing an acute Crohn's flare. Patient did note some right upper quadrant abdominal pain but is better and is now nontender to any light palpation. Still having some diarrhea stools 1-3 times daily but patient denies any obvious blood. Stool studies showed many WBCs , O&P stool pending. Continues with IV fluids for hydration and 100 cc an hour. In monitoring her labs current hemoglobin 10.7, PT/INR 1.2. Appears to be gradually better with hydration and treatment regimen of Flagyl and Cipro. Hemoccult positive stool noted on 12/26/2017. Once patient is stabilized will consider outpatient colonoscopy and follow-up in the GI office. Plan Diet as tolerated per attending Monitor stool studies Cipro IV 400 mg every 12 hours Intake and output monitor number of diarrhea stools Flagyl 500 mg IV every 8 hours Zofran Add PPI p.o. daily Pain management per attending Further recommendations to follow Patient was seen per myself and Dr. Bethea, note was written on his behalf <Alyx Thompson - Last Filed: 12/27/17 13:48> (1) Right upper quadrant abdominal pain Status: Acute Code(s): R10.11 - Right upper quadrant pain (2) Right upper quadrant abdominal pain of unknown etiology Status: Acute Code(s): R10.11 - Right upper quadrant pain (3) Colitis Status: Acute Code(s): K52.9 - Noninfective gastroenteritis and colitis, unspecified (4) Crohn's disease Status: Acute Code(s): K50.90 - Crohn's disease, unspecified, without complications (5) Intractable nausea and vomiting Status: Acute Code(s): R11.2 - Nausea with vomiting, unspecified - Attending Attestation Agree with the plan as above, significant improvement noted, but still complaining of diarrhea and mild abdominal discomfort. Cultures pending. If continue to improve to discharge in AM on Oral Prednisone to be tapped over 2 weeks. Follow up with her GI physician in [place] as out patient. <Kraig Bethea - Last Filed: 12/27/17 23:12>
[2017-12-27] MEDS ORDERED: MethylPREDNISolone Sod Succinate Inj 125 MG/2 ML Vial IV.PUSH ONE (18:09)
[2017-12-27] MEDS ORDERED: Loperamide 2 MG Capsule PO PRN (18:13)
--- NOTE | 2017-12-27 18:13 | P.PNIM ---
Subjective Interval history: Patient states that she has had no reduction in frequency of her diarrhea since admission. 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 Physical Exam Vital signs: Vital Signs 12/26/17 20:00 12/27/17 00:00 12/27/17 04:00 Temperature 99 F 99.1 F 98.1 F Pulse Rate 99 H 94 H 91 H Respiratory Rate 14 16 16 Blood Pressure 100/57 L 114/66 109/61 Pulse Oximetry 98 95 93 L 12/27/17 08:00 12/27/17 12:00 12/27/17 16:00 Temperature 98.2 F 98.2 F 98.2 F Pulse Rate 86 78 86 Respiratory Rate 18 17 17 Blood Pressure 101/64 105/65 107/65 Pulse Oximetry 95 96 97 Intake & Output 12/26/17 12/27/17 12/27/17 18:59 06:59 18:59 Intake Total 1860 / 1860 1880 / 1880 1300 / 1300 Output Total 950 / 950 Balance 1860 / 1860 930 / 930 1300 / 1300 Weight 62.5 kg Intake: IV 1300 / 1300 1400 / 1400 1300 / 1300 NS Inj 1,000 ML @ 100 mls/hr IV 1000 / 1000 1000 / 1000 1000 / 1000 .CONT .Q10H [facility] Rx#:[id number] Cipro 400 MG/200 ML Inj 400 mg 200 / 200 200 / 200 200 / 200 In 200 ml @ 200 mls/hr IV.SIG Q12HR LISSETTE Rx#:[id number] Flagyl 500 MG Inj 100 ML @ 100 100 / 100 200 / 200 100 / 100 mls/hr IV.SIG Q8H LISSETTE Rx#: [id number] Oral 560 / 560 480 / 480 Output: Urine 950 / 950 Other: # Voids 500 Date of Last Bowel Movement 12/26/17 12/27/17 # Bowel Movements 1 Narrative: GENERAL: Well-nourished, well-developed adult female in no obvious distress. SKIN: Warm and dry. HEAD: Atraumatic. Normocephalic. CARDIOVASCULAR: Regular rate and rhythm. RESPIRATORY: No accessory muscle use. Clear to auscultation. Breath sounds equal bilaterally. GASTROINTESTINAL: Abdomen soft, diffusely tender across lower abdomen, no guarding, distended. Positive bowel sounds. MUSCULOSKELETAL: Extremities without clubbing, cyanosis, or edema. No obvious deformities. NEUROLOGICAL: Awake and alert. No obvious cranial nerve deficits. Motor grossly within normal limits. Normal speech. PSYCHIATRIC: Appropriate mood and affect; insight and judgment good. Results - Labs CBC & Chem 7: 12/27/17 06:20 12/27/17 06:20 Laboratory Results - last 24 hr 12/27/17 12/27/17 06:20 06:20 WBC 6.8 RBC 3.48 L Hgb 10.7 L Hct 32.5 L MCV 93.4 MCH 30.8 MCHC 33.0 RDW 13.0 Plt Count 226 MPV 10.6 Neut % (Auto) 61.2 Lymph % (Auto) 16.7 [place] % (Auto) 12.8 H Eos % (Auto) 8.9 H Baso % (Auto) 0.4 Neut # (Auto) 4.1 Lymph # (Auto) 1.1 [place] # (Auto) 0.9 Eos # (Auto) 0.6 H Baso # (Auto) 0.0 WBC Differential . Differential Comment Auto diff final Sodium 140 Potassium 3.1 L Chloride 106 Carbon Dioxide 23.8 Anion Gap 10 BUN 5 L Creatinine 0.51 Estimated GFR Greater than 89 Random Glucose 100 Calcium 7.7 L Magnesium 2.0 Microbiology 12/25/17 12:50 Blood - Peripheral Aerobic Blood Culture - Preliminary No growth in 2 days 12/25/17 12:50 Blood - Peripheral Anaerobic Blood Culture - Preliminary No growth in 2 days 12/25/17 13:00 Blood - Peripheral Aerobic Blood Culture - Preliminary No growth in 2 days 12/25/17 13:00 Blood - Peripheral Anaerobic Blood Culture - Preliminary No growth in 2 days 12/26/17 20:56 Stool Stool for WBCs - Final Many WBC's 12/26/17 20:56 Stool Stool Occult Blood (DAVID) - Final Hemoccult positive Assessment and Plan - Assessment (1) Colitis Code(s): K52.9 - Noninfective gastroenteritis and colitis, unspecified Status : Acute (2) Crohn's disease Code(s): K50.90 - Crohn's disease, unspecified, without complications Status: Acute (3) Intractable nausea and vomiting Code(s): R11.2 - Nausea with vomiting, unspecified Status: Acute - Plan Patient is a 57-year-old female visiting from [place]. Presented after 3 days of nausea vomiting and diarrhea that was not responsive to over-the -counter treatments. She has a history of Crohn's and Crohn's flareup is of concern. Colitis and presence of Crohn's disease history CT Abd/Pelvis w/ distended colon and thickening of colonic wall of descending colon. Continue Cipro and Flagyl, started 12/25/2017 C-reactive protein is markedly elevated Solu-Medrol 40 mg dose was given once, will repeat with 125 mg dose Gastroenterology recommends continuation of IV antibiotics and possible colonoscopy as outpatient We will provide Imodium as needed Nausea vomiting Improved, continue diet as tolerated Continue as needed Zofran Hypokalemia Secondary to persistent diarrhea and vomiting We will follow with a.m. labs Anemia Hemoglobin likely dropping from increasing hydration, revealing underlying anemia DVT prophylaxis SCDs, chemoprophylaxis held due to anemia with potential risk of GI bleed in context of Crohn's and diarrhea
[2017-12-27] MEDS: Sod Chloride 0.9% Inj 1,000 ML IV.SIG SCH (20:10)
[2017-12-28] MEDS: Sod Chloride 0.9% Inj 1,000 ML IV.CONT SCH (06:38)
[2017-12-28 08:32] LABS: Hematocrit 34.8 % (35.0-46.0); Hemoglobin 11.6 gm/dL (11.6-15.3); Mean Corpuscular HGB Conc 33.5 % (32.0-36.0); Mean Corpuscular Hemoglobin 31.1 pg (27.0-34.0); Mean Corpuscular Volume 92.7 fL (80.0-100.0); Mean Platelet Volume 10.2 fL (7.0-11.0); Platelet Count 285 th/mm3 (150-450); Red Blood Count 3.75 mil/mm3 (4.00-5.30); Red Cell Distribution Width 13.2 % (11.6-17.2); White Blood Count 4.5 th/mm3 (4.0-11.0)
[2017-12-28 08:58] LABS: Anion Gap 10 meq/L (5-15); Blood Urea Nitrogen 7 mg/dL (7-18); Calcium 7.8 mg/dL (8.5-10.1); Carbon Dioxide 24.9 meq/L (21.0-32.0); Chloride 108 meq/L (98-107); Glomerular Filtration Rate Greater Than 89 mL/min (>89); Glucose,Random 139 mg/dL (74-106); Potassium 3.5 meq/L (3.5-5.1); Sodium 143 meq/L (136-145)
[2017-12-28] MEDS: Potassium Chloride 25 MEQ Effervescent Tablet PO SCH ×2 (09:24→12:03)
[2017-12-28] MEDS: Ciprofloxacin 400 MG/200 ML 400 MG/200 ML PIGGYBACK IV.SIG SCH (09:24)
[2017-12-28 10:10] VITALS: RESP 20
--- NOTE | 2017-12-28 11:37 | P.PNIM ---
Subjective Interval history: This is a 57-year-old female with a PMH of Crohn's Disease who presented to ER with complaints of abdominal pain, nausea, vomiting and diarrhea x4 days. History obtained from patient's at bedside as she is primarily Citizen Of [place]- speaking, psychiatric technician services declined. Pain is intermittent, cramping, 8/10, non-radiating, associated w/ nausea/vomiting and diarrhea. Denies fever or chills. On arrival, BP 110/55, HR 98, O2 sat 97% on RA, Temp 99.1. CBC unremarkable. INR 1.2. Chemistry essentially unremarkable except for GFR 77. K+ 3.4. Lactic Acid 1.3. CT Abdomen/Pelvis with distended colon and thickening of colonic wall involving descending colon and likely due to colitis. S/p Cipro/Flagyl 9-2 Patient is seen sitting up in bed. She refuses offer of psychiatric technician service. Is able to understand and communicate effectively in [place]ian. She denies any chest pain or shortness of breath. Reports that she still is having cramping pain in her lower abdomen. Continues to have some diarrhea but no longer has nausea or vomiting. Denies fever/ chills. 9-3 Patient states that she has had no reduction in frequency of her diarrhea since admission. She was able to understand how her Crohn's is related to diarrhea due to psychiatric technician being present. 9-4 states NO REAL IMPROVEMENT IN [place] SINCE ADMISSION AT BED TO TRANSLATE CAN BE DCED TO HOME WILL GIVE STEROIDS AND ANTIBIOTICS AND RESTART AZATHIOPRINE 75MG PO DAILY CAN FOLLOW UP WITH PCP AND GI IN 2 WEEKS BACK IN [place] Physical Exam Vital signs: Vital Signs 12/27/17 12:00 12/27/17 16:00 12/27/17 20:00 Temperature 98.2 F 98.2 F 98.7 F Pulse Rate 78 82 94 H Respiratory Rate 17 17 17 Blood Pressure 105/65 107/65 112/68 Pulse Oximetry 96 97 94 L 12/28/17 00:00 12/28/17 04:00 12/28/17 08:00 Temperature 97.8 F 98.0 F 97.8 F Pulse Rate 89 86 75 Respiratory Rate 18 18 20 Blood Pressure 107/67 101/60 111/68 Pulse Oximetry 95 94 L 96 12/28/17 09:00 Temperature Pulse Rate 78 Respiratory Rate Blood Pressure Pulse Oximetry Intake & Output 12/27/17 12/28/17 12/28/17 18:59 06:59 18:59 Intake Total 2120 / 2120 1540 / 1540 200 / 200 Balance 2120 / 2120 1540 / 1540 200 / 200 Weight 63.7 kg Intake: IV 1400 / 1400 1300 / 1300 200 / 200 NS Inj 1,000 ML @ 100 mls/hr IV 1000 / 1000 1000 / 1000 .CONT .Q10H [facility] Rx#:[id number] Cipro 400 MG/200 ML Inj 400 mg 200 / 200 200 / 200 200 / 200 In 200 ml @ 200 mls/hr IV.SIG Q12HR [facility] Rx#:[id number] Flagyl 500 MG Inj 100 ML @ 100 200 / 200 100 / 100 mls/hr IV.SIG Q8H [facility] Rx#: [id number] Oral 720 / 720 240 / 240 Other: # Voids 3 1 Date of Last Bowel Movement 12/27/17 12/27/17 12/27/17 # Bowel Movements 0 4 Narrative: GENERAL: Well-nourished, well-developed adult female in no obvious distress. SKIN: Warm and dry. HEAD: Atraumatic. Normocephalic. CARDIOVASCULAR: Regular rate and rhythm. RESPIRATORY: No accessory muscle use. Clear to auscultation. Breath sounds equal bilaterally. GASTROINTESTINAL: Abdomen soft, diffusely tender across lower abdomen, no guarding, distended. Positive bowel sounds. MUSCULOSKELETAL: Extremities without clubbing, cyanosis, or edema. No obvious deformities. NEUROLOGICAL: Awake and alert. No obvious cranial nerve deficits. Motor grossly within normal limits. Normal speech. PSYCHIATRIC: Appropriate mood and affect; insight and judgment good. Results - Labs CBC & Chem 7: 12/28/17 07:25 12/28/17 07:25 Laboratory Results - last 24 hr 12/28/17 12/28/17 07:25 07:25 WBC 4.5 RBC 3.75 L Hgb 11.6 Hct 34.8 L MCV 92.7 MCH 31.1 MCHC 33.5 RDW 13.2 Plt Count 285 MPV 10.2 Sodium 143 Potassium 3.5 Chloride 108 H Carbon Dioxide 24.9 Anion Gap 10 BUN 7 Creatinine 0.57 Estimated GFR Greater than 89 Random Glucose 139 H Calcium 7.8 L C-Reactive Protein 14.20 H Microbiology 12/25/17 12:50 Blood - Peripheral Aerobic Blood Culture - Preliminary No growth in 3 days 12/25/17 12:50 Blood - Peripheral Anaerobic Blood Culture - Preliminary No growth in 3 days 12/25/17 13:00 Blood - Peripheral Aerobic Blood Culture - Preliminary No growth in 3 days 12/25/17 13:00 Blood - Peripheral Anaerobic Blood Culture - Preliminary No growth in 3 days 12/26/17 20:56 Stool Stool for WBCs - Final Many WBC's - Imaging Abdomen/Pelvis CT 12/25/17 15:31 CONCLUSION: Distended colon with thickening of the colonic wall involving descending colon and possibility of colitis should be entertained. The patient has a history of Crohn's disease and possibility of inflammatory bowel disease should also be entertained. The small bowel appears grossly intact for technique. - Procedures NONE Assessment and Plan - Assessment (1) Colitis Code(s): K52.9 - Noninfective gastroenteritis and colitis, unspecified Status : Acute (2) Crohn's disease Code(s): K50.90 - Crohn's disease, unspecified, without complications Status: Acute (3) Intractable nausea and vomiting Code(s): R11.2 - Nausea with vomiting, unspecified Status: Acute - Plan Patient is a 57-year-old female visiting from [place]. Presented after 3 days of nausea vomiting and diarrhea that was not responsive to over-the -counter treatments. She has a history of Crohn's and Crohn's flareup is of concern. Colitis and presence of Crohn's disease history CT Abd/Pelvis w/ distended colon and thickening of colonic wall of descending colon. Continue Cipro and Flagyl, started 12/25/2017 C-reactive protein is markedly elevated Solu-Medrol 40 mg dose was given once, will repeat with 125 mg dose SWITCH TO PO STEROIDS Gastroenterology recommends continuation of IV antibiotics and possible colonoscopy as outpatient We will provide Imodium as needed Nausea vomiting Improved, continue diet as tolerated Continue as needed Zofran Hypokalemia Secondary to persistent diarrhea and vomiting We will follow with a.m. labs Anemia Hemoglobin likely dropping from increasing hydration, revealing underlying anemia DVT prophylaxis SCDs, chemoprophylaxis held due to anemia with potential risk of GI bleed in context of Crohn's and diarrhea DC TO HOME TODAY SEE RX Code Status: FULL CODE Discussed Condition With: FREYA RN AND PT AND FAMILY Discharge Planning: DC TO HOME TODAY
--- NOTE | 2017-12-28 11:49 | P.DS ---
Date of admission: 12/25/17 18:25 Primary care physician: No Primary Care Physician Attending physician on discharge: Demteris Edwards Anticipated date of discharge: 12/28/17 Brief History from admission: This is a 57-year-old female with a PMH of Crohn's Disease who presented to ER with complaints of abdominal pain, nausea, vomiting and diarrhea x4 days. History obtained from patient's at bedside as she is primarily [place]- speaking, scoop filler services declined. Pain is intermittent, cramping, 8/10, non-radiating, associated w/ nausea/vomiting and diarrhea. Denies fever or chills. On arrival, BP 110/55, HR 98, O2 sat 97% on RA, Temp 99.1. CBC unremarkable. INR 1.2. Chemistry essentially unremarkable except for GFR 77. K+ 3.4. Lactic Acid 1.3. CT Abdomen/Pelvis with distended colon and thickening of colonic wall involving descending colon and likely due to colitis. S/p Cipro/Flagyl Patient update on day of discharge: This is a 57-year-old female with a PMH of Crohn's Disease who presented to ER with complaints of abdominal pain, nausea, vomiting and diarrhea x4 days. History obtained from patient's at bedside as she is primarily [place]- speaking, scoop filler services declined. Pain is intermittent, cramping, 8/10, non-radiating, associated w/ nausea/vomiting and diarrhea. Denies fever or chills. On arrival, BP 110/55, HR 98, O2 sat 97% on RA, Temp 99.1. CBC unremarkable. INR 1.2. Chemistry essentially unremarkable except for GFR 77. K+ 3.4. Lactic Acid 1.3. CT Abdomen/Pelvis with distended colon and thickening of colonic wall involving descending colon and likely due to colitis. S/p Cipro/Flagyl 9-2 Patient is seen sitting up in bed. She refuses offer of scoop filler service. Is able to understand and communicate effectively in [place]ic. She denies any chest pain or shortness of breath. Reports that she still is having cramping pain in her lower abdomen. Continues to have some diarrhea but no longer has nausea or vomiting. Denies fever/ chills. 9-3 Patient states that she has had no reduction in frequency of her diarrhea since admission. She was able to understand how her Crohn's is related to diarrhea due to scoop filler being present. 9-4 states NO REAL IMPROVEMENT IN [place] SINCE ADMISSION AT BED TO TRANSLATE CAN BE DCED TO HOME WILL GIVE STEROIDS AND ANTIBIOTICS AND RESTART AZATHIOPRINE 75MG PO DAILY CAN FOLLOW UP WITH PCP AND GI IN 2 WEEKS BACK IN [facility] SWITCH TO PO MEDS AND DC TO HOME DS: Diagnosis - Discharge Diagnosis (1) Colitis Status: Acute (2) Crohn's disease Status: Acute (3) Intractable nausea and vomiting Status: Acute DS: Medications - Discharge Medications Prescriptions: azathioprine 50 mg PO DAILY #30 tab ciprofloxacin HCl [Cipro] 500 mg PO BID #28 tab Lactobacillus acidoph-L.bulgar [Lactinex] 1 tab PO TID #90 tab loperamide 2 mg PO Q6H PRN #120 cap PRN Reason: Diarrhea metronidazole [Flagyl] 500 mg PO TID #42 tab pantoprazole 40 mg PO DAILY #30 tab potassium bicarb and chloride 25 meq PO TID #21 ea prednisone 10 mg PO BID #120 tab DS: Summary Hospital Course: This is a 57-year-old female with a PMH of Crohn's Disease who presented to ER with complaints of abdominal pain, nausea, vomiting and diarrhea x4 days. History obtained from patient's at bedside as she is primarily [place]- speaking, scoop filler services declined. Pain is intermittent, cramping, 8/10, non-radiating, associated w/ nausea/vomiting and diarrhea. Denies fever or chills. On arrival, BP 110/55, HR 98, O2 sat 97% on RA, Temp 99.1. CBC unremarkable. INR 1.2. Chemistry essentially unremarkable except for GFR 77. K+ 3.4. Lactic Acid 1.3. CT Abdomen/Pelvis with distended colon and thickening of colonic wall involving descending colon and likely due to colitis. S/p Cipro/Flagyl 9-2 Patient is seen sitting up in bed. She refuses offer of scoop filler service. Is able to understand and communicate effectively in [place]ic. She denies any chest pain or shortness of breath. Reports that she still is having cramping pain in her lower abdomen. Continues to have some diarrhea but no longer has nausea or vomiting. Denies fever/ chills. 9-3 Patient states that she has had no reduction in frequency of her diarrhea since admission. She was able to understand how her Crohn's is related to diarrhea due to scoop filler being present. 9-4 states NO REAL IMPROVEMENT IN [place] SINCE ADMISSION AT BED TO TRANSLATE CAN BE DCED TO HOME WILL GIVE STEROIDS AND ANTIBIOTICS AND RESTART AZATHIOPRINE 75MG PO DAILY CAN FOLLOW UP WITH PCP AND GI IN 2 WEEKS BACK IN [facility] - Time Spent with Patient Total time spent providing and/or coordinating discharge services: Greater than 30 minutes - Quality: VTE Deep Vein Thrombosis/Pulmonary Embolism Present on Admission: No Exam Vital signs: Vital Signs 12/27/17 12:00 12/27/17 16:00 12/27/17 20:00 Temperature 98.2 F 98.2 F 98.7 F Pulse Rate 78 82 94 H Respiratory Rate 17 17 17 Blood Pressure 105/65 107/65 112/68 Pulse Oximetry 96 97 94 L 12/28/17 00:00 12/28/17 04:00 12/28/17 08:00 Temperature 97.8 F 98.0 F 97.8 F Pulse Rate 89 86 75 Respiratory Rate 18 18 20 Blood Pressure 107/67 101/60 111/68 Pulse Oximetry 95 94 L 96 12/28/17 09:00 Temperature Pulse Rate 78 Respiratory Rate Blood Pressure Pulse Oximetry Intake & Output 12/27/17 12/28/17 12/28/17 18:59 06:59 18:59 Intake Total 2120 / 2120 1540 / 1540 200 / 200 Balance 2120 / 2120 1540 / 1540 200 / 200 Weight 63.7 kg Intake: IV 1400 / 1400 1300 / 1300 200 / 200 NS Inj 1,000 ML @ 100 mls/hr IV 1000 / 1000 1000 / 1000 .CONT .Q10H [facility] Rx#:[id number] Cipro 400 MG/200 ML Inj 400 mg 200 / 200 200 / 200 200 / 200 In 200 ml @ 200 mls/hr IV.SIG Q12HR [facility] Rx#:[id number] Flagyl 500 MG Inj 100 ML @ 100 200 / 200 100 / 100 mls/hr IV.SIG Q8H [facility] Rx#: [id number] Oral 720 / 720 240 / 240 Other: # Voids 3 1 Date of Last Bowel Movement 12/27/17 12/27/17 12/27/17 # Bowel Movements 0 4 Narrative: GENERAL: Well-nourished, well-developed adult female in no obvious distress. SKIN: Warm and dry. HEAD: Atraumatic. Normocephalic. CARDIOVASCULAR: Regular rate and rhythm. RESPIRATORY: No accessory muscle use. Clear to auscultation. Breath sounds equal bilaterally. GASTROINTESTINAL: Abdomen soft, diffusely tender across lower abdomen, no guarding, distended. Positive bowel sounds. MUSCULOSKELETAL: Extremities without clubbing, cyanosis, or edema. No obvious deformities. NEUROLOGICAL: Awake and alert. No obvious cranial nerve deficits. Motor grossly within normal limits. Normal speech. PSYCHIATRIC: Appropriate mood and affect; insight and judgment good. Results Procedures completed during hospitalization: NONE Completed studies during hospitalization: Laboratory Results WBC 4.5 th/mm3 (4.0-11.0) 12/28/17 07:25 RBC 3.75 mil/mm3 (4.00-5.30) L 12/28/17 07:25 Hgb 11.6 gm/dL (11.6-15.3) 12/28/17 07:25 Hct 34.8 % (35.0-46.0) L 12/28/17 07:25 MCV 92.7 fL (80.0-100.0) 12/28/17 07:25 MCH 31.1 pg (27.0-34.0) 12/28/17 07:25 MCHC 33.5 % (32.0-36.0) 12/28/17 07:25 RDW 13.2 % (11.6-17.2) 12/28/17 07:25 Plt Count 285 th/mm3 (150-450) 12/28/17 07:25 MPV 10.2 fL (7.0-11.0) 12/28/17 07:25 Neut % (Auto) 61.2 % (16.0-70.0) 12/27/17 06:20 Lymph % (Auto) 16.7 % (9.0-44.0) 12/27/17 06:20 [place] % (Auto) 12.8 % (0.0-8.0) H 12/27/17 06:20 Eos % (Auto) 8.9 % (0.0-4.0) H 12/27/17 06:20 Baso % (Auto) 0.4 % (0.0-2.0) 12/27/17 06:20 Neut # (Auto) 4.1 th/mm3 (1.8-7.7) 12/27/17 06:20 Lymph # (Auto) 1.1 th/mm3 (1.0-4.8) 12/27/17 06:20 [place] # (Auto) 0.9 th/mm3 (0.0-0.9) 12/27/17 06:20 Eos # (Auto) 0.6 th/mm3 (0.0-0.4) H 12/27/17 06:20 Baso # (Auto) 0.0 th/mm3 (0.0-0.2) 12/27/17 06:20 WBC Differential . 12/27/17 06:20 Differential Comment Auto diff final 12/27/17 06:20 ESR 36 mm/hr (0-30) H 12/25/17 12:30 PT 11.8 sec (9.8-11.6) H 12/25/17 12:56 INR 1.2 Ratio 12/25/17 12:56 APTT 28.6 sec (24.3-30.1) 12/25/17 12:56 Sodium 143 meq/L (136-145) 12/28/17 07:25 Potassium 3.5 meq/L (3.5-5.1) 12/28/17 07:25 Chloride 108 meq/L (98-107) H 12/28/17 07:25 Carbon Dioxide 24.9 meq/L (21.0-32.0) 12/28/17 07:25 Anion Gap 10 meq/L (5-15) 12/28/17 07:25 BUN 7 mg/dL (7-18) 12/28/17 07:25 Creatinine 0.57 mg/dL (0.50-1.00) 12/28/17 07:25 Estimated GFR Greater than 89 mL/min (>89) 12/28/17 07:25 Random Glucose 139 mg/dL (74-106) H 12/28/17 07:25 Lactic Acid 1.3 mmol/L (0.4-2.0) 12/25/17 13:00 Calcium 7.8 mg/dL (8.5-10.1) L 12/28/17 07:25 Prot Corrected Calcium Cancelled 12/25/17 12:30 Magnesium 2.0 mg/dL (1.5-2.5) 12/27/17 06:20 Total Bilirubin 0.4 mg/dL (0.2-1.0) 12/26/17 04:55 AST 19 U/L (15-37) 12/26/17 04:55 ALT 20 U/L (10-53) 12/26/17 04:55 Alkaline Phosphatase 37 U/L (45-117) L 12/26/17 04:55 C-Reactive Protein 14.20 mg/dL (0.00-0.30) H 12/28/17 07:25 Total Protein 4.7 g/dL (6.4-8.2) L D 12/26/17 04:55 Albumin 1.7 g/dL (3.4-5.0) L D 12/26/17 04:55 Lipase 52 U/L (73-393) L 12/25/17 12:30 Impressions Abdomen/Pelvis CT 12/25/17 15:31 CONCLUSION: Distended colon with thickening of the colonic wall involving descending colon and possibility of colitis should be entertained. The patient has a history of Crohn's disease and possibility of inflammatory bowel disease should also be entertained. The small bowel appears grossly intact for technique. Labs on day of discharge: Labs from last 24 hours 12/28/17 12/28/17 07:25 07:25 WBC 4.5 RBC 3.75 L Hgb 11.6 Hct 34.8 L MCV 92.7 MCH 31.1 MCHC 33.5 RDW 13.2 Plt Count 285 MPV 10.2 Sodium 143 Potassium 3.5 Chloride 108 H Carbon Dioxide 24.9 Anion Gap 10 BUN 7 Creatinine 0.57 Estimated GFR Greater than 89 Random Glucose 139 H Calcium 7.8 L C-Reactive Protein 14.20 H Preliminary micro results at discharge 12/25/17 12:50 Aerobic Blood Culture - Preliminary Blood - Peripheral No growth in 3 days Anaerobic Blood Culture - Preliminary No growth in 3 days 12/25/17 13:00 Aerobic Blood Culture - Preliminary Blood - Peripheral No growth in 3 days Anaerobic Blood Culture - Preliminary No growth in 3 days - Impressions ITS Impressions Abdomen/Pelvis CT 12/25/17 15:31 CONCLUSION: Distended colon with thickening of the colonic wall involving descending colon and possibility of colitis should be entertained. The patient has a history of Crohn's disease and possibility of inflammatory bowel disease should also be entertained. The small bowel appears grossly intact for technique. Discharge Plan - Discharge Disposition Patient Disposition: 01 Discharge Home - Discharge Condition Condition: Good - Discharge Order Discharge Orders: Discharge Order (Routine); Ordered 12/28/17 Ordered By: Demetris Edwards - Physicians Team Primary Care Provider: Primary Care Luli Rosado Attending Provider: Demetris Edwards Other Providers: Kraig Bethea MD
--- NOTE | 2017-12-28 13:31 | P.PNGI ---
Subjective Interval history: Patient continues to show gradual improvement and is more alert has been currently in the room Patient states loose bowel movement 2 in the past 24 hours, gradual improvement of abdominal pain no nausea no vomiting taken p.o. fluids well <Alyx Thompson - Last Filed: 12/28/17 13:28> Physical Exam Vital signs: Vital Signs 12/27/17 16:00 12/27/17 20:00 12/28/17 00:00 Temperature 98.2 F 98.7 F 97.8 F Pulse Rate 82 94 H 89 Respiratory Rate 17 17 18 Blood Pressure 107/65 112/68 107/67 Pulse Oximetry 97 94 L 95 12/28/17 04:00 12/28/17 08:00 12/28/17 09:00 Temperature 98.0 F 97.8 F Pulse Rate 86 75 78 Respiratory Rate 18 20 Blood Pressure 101/60 111/68 Pulse Oximetry 94 L 96 Intake & Output 12/27/17 12/28/17 12/28/17 18:59 06:59 18:59 Intake Total 2120 / 2120 1540 / 1540 300 / 300 Balance 2120 / 2120 1540 / 1540 300 / 300 Weight 63.7 kg Intake: IV 1400 / 1400 1300 / 1300 300 / 300 NS Inj 1,000 ML @ 100 mls/hr IV 1000 / 1000 1000 / 1000 .CONT .Q10H [facility] Rx#:[id number] Cipro 400 MG/200 ML Inj 400 mg 200 / 200 200 / 200 200 / 200 In 200 ml @ 200 mls/hr IV.SIG Q12HR [facility] Rx#:[id number] Flagyl 500 MG Inj 100 ML @ 100 200 / 200 100 / 100 100 / 100 mls/hr IV.SIG Q8H [facility] Rx#: [id number] Oral 720 / 720 240 / 240 Other: # Voids 3 1 Date of Last Bowel Movement 12/27/17 12/27/17 12/27/17 # Bowel Movements 0 4 - Constitutional no acute distress - Routine HEENT Exam Head: Present: normocephalic ENT: Present: mucous membranes moist - Routine Respiratory Exam Present: accessory muscle use (Even, unlabored) - Routine Abdominal Exam Present: soft, normoactive bowel sounds (No abdominal pain to light palpation) - Routine Skin Exam Present: intact - Routine Neurological Exam Present: alert <Alyx Thompson - Last Filed: 12/28/17 13:28> Vital signs: Vital Signs 12/27/17 20:00 12/28/17 00:00 12/28/17 04:00 Temperature 98.7 F 97.8 F 98.0 F Pulse Rate 94 H 89 86 Respiratory Rate 17 18 18 Blood Pressure 112/68 107/67 101/60 Pulse Oximetry 94 L 95 94 L 12/28/17 08:00 12/28/17 09:00 12/28/17 12:00 Temperature 97.8 F 98.2 F Pulse Rate 75 78 75 Respiratory Rate 20 20 Blood Pressure 111/68 137/85 Pulse Oximetry 96 95 Intake & Output 12/27/17 12/28/17 12/28/17 18:59 06:59 18:59 Intake Total 2120 / 2120 1540 / 1540 300 / 300 Output Total 4 / 4 Balance 2120 / 2120 1540 / 1540 296 / 296 Weight 63.7 kg Intake: IV 1400 / 1400 1300 / 1300 300 / 300 NS Inj 1,000 ML @ 100 mls/hr IV 1000 / 1000 1000 / 1000 .CONT .Q10H [facility] Rx#:[id number] Cipro 400 MG/200 ML Inj 400 mg 200 / 200 200 / 200 200 / 200 In 200 ml @ 200 mls/hr IV.SIG Q12HR [facility] Rx#:[id number] Flagyl 500 MG Inj 100 ML @ 100 200 / 200 100 / 100 100 / 100 mls/hr IV.SIG Q8H [facility] Rx#: [id number] Oral 720 / 720 240 / 240 Output: Urine 2 / 2 Stool 2 / 2 Other: # Voids 3 1 Date of Last Bowel Movement 12/27/17 12/27/17 12/28/17 # Bowel Movements 0 4 <Kraig Bethea - Last Filed: 12/28/17 16:27> Results - Labs CBC & Chem 7: 12/28/17 07:25 12/28/17 07:25 Laboratory Results - last 24 hr 12/28/17 12/28/17 07:25 07:25 WBC 4.5 RBC 3.75 L Hgb 11.6 Hct 34.8 L MCV 92.7 MCH 31.1 MCHC 33.5 RDW 13.2 Plt Count 285 MPV 10.2 Sodium 143 Potassium 3.5 Chloride 108 H Carbon Dioxide 24.9 Anion Gap 10 BUN 7 Creatinine 0.57 Estimated GFR Greater than 89 Random Glucose 139 H Calcium 7.8 L C-Reactive Protein 14.20 H Microbiology 12/25/17 12:50 Blood - Peripheral Aerobic Blood Culture - Preliminary No growth in 3 days 12/25/17 12:50 Blood - Peripheral Anaerobic Blood Culture - Preliminary No growth in 3 days 12/25/17 13:00 Blood - Peripheral Aerobic Blood Culture - Preliminary No growth in 3 days 12/25/17 13:00 Blood - Peripheral Anaerobic Blood Culture - Preliminary No growth in 3 days - Procedures NONE <Alyx Thompson - Last Filed: 12/28/17 13:28> - Labs CBC & Chem 7: 12/28/17 07:25 12/28/17 07:25 Laboratory Results - last 24 hr 12/28/17 12/28/17 07:25 07:25 WBC 4.5 RBC 3.75 L Hgb 11.6 Hct 34.8 L MCV 92.7 MCH 31.1 MCHC 33.5 RDW 13.2 Plt Count 285 MPV 10.2 Sodium 143 Potassium 3.5 Chloride 108 H Carbon Dioxide 24.9 Anion Gap 10 BUN 7 Creatinine 0.57 Estimated GFR Greater than 89 Random Glucose 139 H Calcium 7.8 L C-Reactive Protein 14.20 H Microbiology 12/25/17 12:50 Blood - Peripheral Aerobic Blood Culture - Preliminary No growth in 3 days 12/25/17 12:50 Blood - Peripheral Anaerobic Blood Culture - Preliminary No growth in 3 days 12/25/17 13:00 Blood - Peripheral Aerobic Blood Culture - Preliminary No growth in 3 days 12/25/17 13:00 Blood - Peripheral Anaerobic Blood Culture - Preliminary No growth in 3 days <Kraig Bethea - Last Filed: 12/28/17 16:27> Assessment and Plan (1) Right upper quadrant abdominal pain Status: Acute Code(s): R10.11 - Right upper quadrant pain (2) Right upper quadrant abdominal pain of unknown etiology Status: Acute Code(s): R10.11 - Right upper quadrant pain (3) Colitis Status: Acute Code(s): K52.9 - Noninfective gastroenteritis and colitis, unspecified (4) Crohn's disease Status: Acute Code(s): K50.90 - Crohn's disease, unspecified, without complications (5) Intractable nausea and vomiting Status: Acute Code(s): R11.2 - Nausea with vomiting, unspecified - Plan 12/27/2017 57-year-old female predominantly Nepali speaking came in with abdominal pain nausea vomiting and diarrhea. Patient has a history of Crohn's disease and could be experiencing an acute Crohn's flare. Patient did note some right upper quadrant abdominal pain but is better and is now nontender to any light palpation. Still having some diarrhea stools 1-3 times daily but patient denies any obvious blood. Stool studies showed many WBCs , O&P stool pending. Continues with IV fluids for hydration and 100 cc an hour. In monitoring her labs current hemoglobin 10.7, PT/INR 1.2. Appears to be gradually better with hydration and treatment regimen of Flagyl and Cipro. Hemoccult positive stool noted on 12/26/2017. Once patient is stabilized will consider outpatient colonoscopy and follow-up in the GI office. 12/28/2017 patient continues to show improvement and is currently not having any abdominal pain to light palpation. Still notes loose stools 2 and 24 hours but much improved. Plan is for discharge today, prednisone has been ordered per attending for outpatient dosing so she can get back to [place] and follow- up with her GI doctor. Prescription for outpatient prednisone has been given to patient. Encourage patient to sit up p.o. fluids and eat small feedings more frequently. Increase activity as tolerated . supportive care given Patient was seen per myself and Dr. Bethea, note was written on his behalf <Alyx Thompson - Last Filed: 12/28/17 13:28> (1) Right upper quadrant abdominal pain Status: Acute Code(s): R10.11 - Right upper quadrant pain (2) Right upper quadrant abdominal pain of unknown etiology Status: Acute Code(s): R10.11 - Right upper quadrant pain (3) Colitis Status: Acute Code(s): K52.9 - Noninfective gastroenteritis and colitis, unspecified (4) Crohn's disease Status: Acute Code(s): K50.90 - Crohn's disease, unspecified, without complications (5) Intractable nausea and vomiting Status: Acute Code(s): R11.2 - Nausea with vomiting, unspecified - Attending Attestation As above, she is stable from our point of view. Can be discharged on Prednisone Orally and follow up in the office as outpatient. <Kraig Bethea - Last Filed: 12/28/17 16:27>
[2017-12-28 13:53] VITALS: BP 137/85; PULSE 75; TEMP 98.2; O2SAT 95
== END 2017-12-28 13:23 | disposition home or self-care (01) ==
LOC: NEPC 11:31 → NEDA 18:25 → N04 19:12
PROVIDERS: ADMIT Hospitalist; ATTEND Hospitalist